=== PATIENT | female | born 1980 ===

== ENCOUNTER 2017-04-28 03:19 | Outpatient (CLI) | payer BC | END 2017-04-28 23:59 | disposition home or self-care (01) | LOC: DIABETIC 03:19 | PROVIDERS: ATTEND Specialist | DX: E11.65 Type 2 diabetes mellitus with hyperglycemia (principal) | CPT/HCPCS: G0108 ==

== ENCOUNTER 2017-07-28 03:41 | Outpatient (CLI) | payer BC | END 2017-07-28 23:59 | disposition home or self-care (01) | LOC: DIABETIC 03:41 | PROVIDERS: ATTEND Specialist | DX: E11.65 Type 2 diabetes mellitus with hyperglycemia (principal) | CPT/HCPCS: G0108 ==

== ENCOUNTER 2017-11-10 00:47 | Outpatient (CLI) | payer BC | END 2017-11-10 23:59 | disposition home or self-care (01) | LOC: DIABETIC 00:47 | PROVIDERS: ATTEND Specialist | DX: E11.65 Type 2 diabetes mellitus with hyperglycemia (principal); Z79.899 Other long term (current) drug therapy | CPT/HCPCS: G0108 ==

== ENCOUNTER 2018-02-14 03:07 | Outpatient (CLI) | payer BC | END 2018-02-14 23:59 | disposition home or self-care (01) | LOC: DIABETIC 03:07 | PROVIDERS: ATTEND Specialist | DX: E11.9 Type 2 diabetes mellitus without complications (principal); Z71.3 Dietary counseling and surveillance | CPT/HCPCS: G0108 ==

== ENCOUNTER 2018-06-16 01:20 | Outpatient (CLI) | payer BC | END 2018-06-16 23:59 | disposition home or self-care (01) | LOC: DIABETIC 01:20 | PROVIDERS: ATTEND Specialist | DX: E11.9 Type 2 diabetes mellitus without complications (principal) | CPT/HCPCS: G0108 ==

== ENCOUNTER 2018-12-06 00:55 | Outpatient (CLI) | payer BC | END 2018-12-06 23:59 | disposition home or self-care (01) | LOC: DIABETIC 00:55 | PROVIDERS: ATTEND Specialist | DX: E11.65 Type 2 diabetes mellitus with hyperglycemia (principal); Z79.4 Long term (current) use of insulin; Z79.899 Other long term (current) drug therapy | CPT/HCPCS: G0108 ==

== ENCOUNTER 2019-03-08 01:11 | Outpatient (CLI) | payer BC | END 2019-03-08 23:59 | disposition home or self-care (01) | LOC: DIABETIC 01:11 | PROVIDERS: ATTEND Specialist | DX: E11.65 Type 2 diabetes mellitus with hyperglycemia (principal); Z79.84 Long term (current) use of oral hypoglycemic drugs | CPT/HCPCS: G0108 ==